=== PATIENT | male | born 1940 | race Caucasian/White ===

== ENCOUNTER 2022-10-31 15:29 | Outpatient (CLI) | payer MEDICARE, OTHER | END 2022-10-31 15:30 | disposition home or self-care (01) | LOC: BICMAMMO 15:29 | PROVIDERS: ATTEND Internal Medicine Rheumatology | DX: M81.0 Age-related osteoporosis without current pathological fracture (principal); M85.89 Other specified disorders of bone density and structure, multiple sites | CPT/HCPCS: 77080 ==